=== PATIENT | female | born 1995 | race Caucasian/White ===

== ENCOUNTER 2017-11-09 14:58 | Emergency (ER) | payer OTHER ==
[2017-11-09 18:54] VITALS: BP 105/63
--- NOTE | 2017-11-09 19:12 | UC ---
FLU HPI - HPI Summary HPI Summary: 22 y/o female presents to the urgent care c/o [place], body aches chills and fatigue since 11/06/2017. Pt reports fever started yesterday associated w/ nausea , and mild dizziness. She had fever of 101.2 and has been taking Tylenol PO to alleviate symptoms. Pt denies SOB, chest pain, abdominal pain, N/V/D. - History of Current Complaint Chief Complaint: UCRespiratory Stated Complaint: NAUSEA,FATIGUEC Time Seen by Provider: 11/09/17 19:11 Hx Obtained From: Patient Hx Last Menstrual Period: 3 WEEKS AGO ?: No Onset/Duration: Gradual Onset, Lasting Days - 1 day, Still Present, Worse Since - today Severity Currently: Moderate Severity Initially: Mild Pain Intensity: 5 Pain Scale Used: 0-10 Numeric Associated Signs & Symptoms: Positive: Fever, Myalgia, Cough, Sore Throat, Nasal Congestion, Headache - Risk Factors Influenza Risk Factors: Negative - Allergy/Home Medications Allergies/Adverse Reactions: Allergies Allergy/AdvReac Type Severity Reaction Status Date / Time gluten Allergy Severe ABD Verified 11/09/17 18:54 PAIN/CRAMPS DAIRY Allergy GAS, Uncoded 11/09/17 18:54 "DOESN'T SIT RIGHT" Home Medications: Home Medications Acetaminophen [Mapap] 1,000 mg PO PRN 11/09/17 [History] Levothyroxine TAB* [Synthroid TAB*] 137 mcg PO DAILY 11/09/17 [History Confirmed 11/09/17] Vitamins* 11/09/17 [History] PMH/Surg Hx/FS Hx/Imm Hx Endocrine History: Hypothyroidism - Surgical History Surgical History: None - Family History Family History: Hypothyrodism, Migraines - Social History Occupation: Student Lives: With Family Alcohol Use: Rare Substance Use Type: Marijuana Smoking Status (MU): Never Smoked Tobacco Review of Systems Constitutional: Fever, Chills, Other - body aches Skin: Negative Eyes: Negative ENT: Sore Throat, Nasal Discharge, Sinus Congestion Respiratory: Cough Cardiovascular: Negative Gastrointestinal: Nausea Genitourinary: Negative Motor: Negative Neurovascular: Negative Musculoskeletal: Negative Neurological: Headache Psychological: Negative Is Patient Immunocompromised?: No All Other Systems Reviewed And Are Negative: Yes Physical Exam Triage Information Reviewed: Yes Vital Signs: Initial Vital Signs Temp 98.7 F 02/11/18 18:50 Pulse 92 11/09/17 18:50 Resp 16 11/09/17 18:50 BP 105/63 11/09/17 18:50 Pulse Ox 97 11/09/17 18:50 - Additional Comments VITAL SIGNS: Reviewed. GENERAL: Patient is a well developed and nourished female who is sitting comfortable in the examining table. Patient is not in any acute respiratory distress. HEAD AND FACE: No signs of trauma. No ecchymosis, hematomas or skull depressions. No sinus tenderness. edematous erythematous nasal mucosa with yellowish discharge, EYES: PERRLA, EOMI x 2, No injected conjunctiva, clear watery eyes, no nystagmus. No photophobia. EARS: Hearing grossly intact. Ear canals and tympanic membranes are within normal limits. MOUTH: Positive pharynx with erythema, no exudates,no palatal petechiae. no B/ L tonsillar enlargement Uvula in midline. NECK: Supple, trachea is midline, Positive anterior cervical lymphadenopathy, no JVD, no carotid bruit, no c-spine tenderness, neck with full ROM. No meningeal signs, no Kernig's or brudzinskis signs. CHEST: Symmetric, no tenderness at palpation LUNGS: Clear to auscultation bilaterally. No wheezing or crackles. CVS: Regular rate and rhythm, S1 and S2 present, no murmurs or gallops appreciated. ABDOMEN: Soft, non-tender. No signs of distention. No rebound no guarding, and no masses palpated. Bowel sounds are normal. EXTREMITIES: FROM in all major joints, no edema, no cyanosis or clubbing. NEURO: Alert and oriented x 3. No acute neurological deficits. Speech is normal and follows commands. SKIN: Dry and warm Flu Course/Dx - Course Course Of Treatment: 22 y/o female presents to the urgent care c/o [place], body aches chills and fatigue since 11/06/2017. Pt reports fever started yesterday associated w/ nausea, and mild dizziness. She had fever of 101.2 and has been taking Tylenol PO to alleviate symptoms. Pt denies SOB, chest pain, abdominal pain, N/V/D. Hx obtained.Pt with viral syndrome on examination. Influenza A&B ordered: result: negative. Pt Rx ibuprofen PO to alleviates symptoms. Advised on hand washing. Pt advised to rest, increase fluid intake, eat well and avoid strenuous exercise. If symptoms do not improve or worsen advised to return to the urgent care or f/u with her PCP for further evaluation and treatment. Pt understood and agreed with plan of care. - Differential Dx/Diagnosis Differential Diagnosis/HQI/PQRI: Bronchitis, Influenza, Pneumonia, Upper Respiratory Infection Provider Diagnoses: 1-Viral syndrome Discharge - Discharge Plan Condition: Stable Disposition: HOME Patient Education Materials: Viral Syndrome (ED) Forms: *School Release Referrals: [facility] [Outside] - 3 Days Additional Instructions: 1-Please take ibuprofen PO q6-8hrs prn as instructed after meals to alleviate pain and swelling. Increase fluid intake, eat well, rest and avoid strenuous exercise 2-If symptoms do not improve or worsen please return to the urgent care or f/u with your PCP for further evaluation and treatment.
== END 2017-11-09 20:00 | disposition home or self-care (01) ==
LOC: UCEAST 14:58
DX: B34.9 Viral infection, unspecified (principal); E03.9 Hypothyroidism, unspecified; F12.90 Cannabis use, unspecified, uncomplicated
CPT/HCPCS: 87502; 99211; G0463

== ENCOUNTER 2017-11-12 12:23 | Emergency (ER) | payer OTHER ==
[2017-11-12 13:47] VITALS: BP 92/58
--- NOTE | 2017-11-12 14:27 | UC ---
Respiratory Complaint HPI - HPI Summary HPI Summary: Pt presents with wheezing and dry cough. She tells me that she was seen here 3- 4 days ago for flu like symptoms and told her test was negative for the flu. But the following days she continued with body aches, fatigue, and fever - all of which are feeling better now. She, however, still has a persistent cough and feels as though she is wheezing at times. Denies fever, chills, SOB, chest pain , abdominal pain, n/v/d/c. - History of Current Complaint Chief Complaint: UCGeneralIllness Stated Complaint: cough Time Seen by Provider: 11/12/17 14:27 Hx Obtained From: Patient Hx Last Menstrual Period: 11/12/17 Severity Currently: None Pain Intensity: 1 Character: Cough: Nonproductive - Allergies/Home Medications Allergies/Adverse Reactions: Allergies Allergy/AdvReac Type Severity Reaction Status Date / Time gluten Allergy Severe ABD Verified 11/12/17 13:41 PAIN/CRAMPS DAIRY Allergy GAS, Uncoded 11/12/17 13:41 "DOESN'T SIT RIGHT" Home Medications: Home Medications Ibuprofen TAB* [Advil TAB*] 200 mg PO Q6H PRN 11/12/17 [History Confirmed ] PMH/Surg Hx/FS Hx/Imm Hx Previously Healthy: Yes Endocrine History: Hypothyroidism - Surgical History Surgical History: None - Family History Family History: Hypothyrodism, Migraines - Social History Occupation: Student Lives: Alone Alcohol Use: Rare Substance Use Type: None Smoking Status (MU): Never Smoked Tobacco Review of Systems Constitutional: Negative Skin: Negative Eyes: Negative ENT: Negative Respiratory: Cough Cardiovascular: Negative Gastrointestinal: Negative Musculoskeletal: Negative Neurological: Negative Psychological: Negative All Other Systems Reviewed And Are Negative: Yes Physical Exam Triage Information Reviewed: Yes Appearance: Well-Appearing, No Pain Distress, Well-Nourished Vital Signs: Initial Vital Signs Temp 98.6 F 11/12/17 13:42 Pulse 66 11/12/17 13:42 Resp 18 11/12/17 13:42 BP 92/58 11/12/17 13:42 Pulse Ox 98 11/12/17 13:42 Vital Signs Reviewed: Yes Eyes: Positive: Conjunctiva Clear. Negative: Conjunctiva Inflamed, Discharge ENT: Positive: Hearing grossly normal, Pharynx normal, TMs normal, Uvula midline. Negative: Pharyngeal erythema, Nasal congestion, Nasal drainage, TM bulging, TM dull, TM red, Tonsillar swelling, Tonsillar exudate, Hoarse voice, Sinus tenderness Neck: Positive: Supple, Nontender, No Lymphadenopathy Respiratory: Positive: Chest non-tender, Lungs clear, No respiratory distress, No accessory muscle use, Wheezing - Mild at lung bases. Negative: Crackles Cardiovascular: Positive: RRR, No Murmur, Pulses Normal Neurological: Positive: Alert Psychological: Positive: Age Appropriate Behavior Skin: Negative: rashes UC Diagnostic Evaluation - Laboratory O2 Sat by Pulse Oximetry: 98 Respiratory Course/Dx - Course Course Of Treatment: Suspect bronchitis - will try prednisone and albuterol inhaler. - Differential Dx/Diagnosis Provider Diagnoses: Bronchitis Discharge - Discharge Plan Condition: Stable Disposition: HOME Prescriptions: Albuterol HFA INHALER* [Ventolin HFA Inhaler*] 1 - 2 puff INH Q6H PRN #1 mdi PRN Reason: Cough predniSONE TAB* [Deltasone TAB*] 40 mg PO DAILY #10 tab Patient Education Materials: Acute Bronchitis (ED) Referrals: No Primary Care Phys,NOPCP [Primary Care Provider] - Additional Instructions: If you develop a fever, shortness of breath, chest pain, new or worsening symptoms - please call your PCP or go to the ED.
== END 2017-11-12 14:39 | disposition home or self-care (01) ==
LOC: UCEAST 12:23
DX: J40 Bronchitis, not specified as acute or chronic (principal); E03.9 Hypothyroidism, unspecified
CPT/HCPCS: 99212; G0463

== ENCOUNTER 2017-11-18 16:30 | Emergency (ER) | payer OTHER ==
[2017-11-18] MEDS ORDERED: NS 0.9% 1000 ML* 1,000 ML IV ONE ×2 (16:36→16:55)
[2017-11-18 18:45] VITALS: BP 114/64
--- NOTE | 2017-11-18 20:59 | ED ---
Helena Crespo Thomas, scribed for Miroslava Holder MD on 11/18/17 at 1735 . Respiratory - HPI Summary HPI Summary: The patient is a 22 year old female referred from [facility] complaining of shortness of breath and cough for the last two weeks. She had a nera syncopal episode. The patient had a CXR obtained at [facility] that showed left upper lobe pneumonia. She was orthostatic at 77/42 prior to arrival. The patient has been taking steroids and albuterol. Two weeks ago, the patient had flu-like symptoms. A rapid influenza swab was negative at urgent care two weeks ago. LMP was last week. - History of Current Complaint Chief Complaint: EDFluSymptoms Stated Complaint: GENERAL ILLNESS Time Seen by Provider: 11/18/17 17:27 Hx Obtained From: Patient Onset/Duration: Lasting Weeks - 2, Still Present Timing: Constant Initial Severity: Mild Current Severity: Moderate Pain Intensity: 4 Character: Cough (Nonproductive) Aggravating Factor(s): Nothing Alleviating Factor(s): Other - Steroids, albuterol Associated Signs and Symptoms: SOB, Dyspnea - Allergy/Home Medications Allergies/Adverse Reactions: Allergies Allergy/AdvReac Type Severity Reaction Status Date / Time gluten Allergy Severe ABD Verified 11/12/17 13:41 PAIN/CRAMPS DAIRY Allergy GAS, Uncoded 11/12/17 13:41 "DOESN'T SIT RIGHT" PMH/Surg Hx/FS Hx/Imm Hx Endocrine/Hematology History: Reports: Hx Thyroid Disease Respiratory History: Denies: Hx Asthma - Surgical History Surgery Procedure, Year, and Place: None Infectious Disease History: No Infectious Disease History: Denies: Traveled Outside the [place] in Last 30 Days - Family History Known Family History: Positive: Other - Migraines, hypothyroidism Family History: Hypothyrodism, Migraines - Social History Occupation: Student Alcohol Use: Rare Substance Use Type: Reports: Marijuana Smoking Status (MU): Never Smoked Tobacco Review of Systems Positive: Shortness Of Breath, Cough Positive: Syncope - near All Other Systems Reviewed And Are Negative: Yes Physical Exam - Summary Physical Exam Summary: Appearance: mildly Ill-appearing, no pain distress, Well-nourished Skin: Warm, color reflects adequate perfusion Head: Normal Head/Face inspection Eyes: Conjunctiva clear ENT: Normal inspection Neck: Supple, no nodes, no JVD. Respiratory: Lungs clear, Normal breath sounds, no respiratory distress Cardio: RRR, No murmur, pulses normal, brisk capillary refill Abdomen: soft, nontender Bowel sounds: present Musculoskeletal: Strength Intact/ ROM intact. No calf tenderness. No edema. Neuro: Alert, muscle tone normal, facial symmetry, speech normal, sensory/motor intact Psychological: Normal Triage Information Reviewed: Yes Vital Signs On Initial Exam: Initial Vitals Temp Pulse Resp BP Pulse Ox 99.7 F 96 18 98/67 97 11/18/17 16:33 11/18/17 16:33 11/18/17 16:33 11/18/17 16:33 11/18/17 16:33 Vital Signs Reviewed: Yes Diagnostics - Vital Signs Vital Signs Temp Pulse Resp BP Pulse Ox 11/18/17 16:33 99.7 F 96 18 98/67 97 - Laboratory Lab Results: Lab Results 11/18/17 Range/Units 18:20 Influenza A (Rapid) Negative (Negative) Influenza B (Rapid) Negative (Negative) Lab Statement: Any lab studies that have been ordered have been reviewed, and results considered in the medical decision making process. Disposition - Course Assessment/Plan: The patient is a 22 year old female referred from [facility] complaining of shortness of breath and cough for the last two weeks. A CXR obtained prior to arrival showed left upper lobe pneumonia. She was orthostatic at 77/42 prior to arrival. The patient was given IV fluids. Rapid Influenza A and B are negative. The patient was instructed to pickling solution maker her antibiotics prescribed by Kirsty Villatoro today. I prescribed the patient a 12- day taper of prednisone. She was given two liters of normal saline and her blood pressure returned to normal. The patient will be discharged with follow up at [facility]. - Diagnoses Provider Diagnoses: Pneumonia, Orthostatic hypotension, Near syncope Discharge - Discharge Plan Condition: Stable Disposition: HOME Prescriptions: predniSONE TAB* [Deltasone TAB*] 10 mg PO DAILY #30 tab Patient Education Materials: Hypotension (ED), Near Syncope (ED), Pneumonia (ED ) Forms: *School Release [facility] [Z.BUSINESS, APPLICATION, OTHER] - 2 Days Additional Instructions: Follow up at [facility] in two days. Please pickling solution maker your antibiotics prescribed today by Kirsty Villatoro. Take them as directed. We are prescribing you a 12-day prednisone taper. Your influenza swab was negative. You were given two liters of Normal Saline fluid and your blood pressure returned to normal. Return to the ER if you have any new or worsening symptoms. The documentation as recorded by the Helena engle Thomas accurately reflects the service I personally performed and the decisions made by me, Miroslava Holder MD.
== END 2017-11-18 18:48 | disposition home or self-care (01) ==
LOC: ED 16:30
DX: J18.9 Pneumonia, unspecified organism (principal); I95.1 Orthostatic hypotension; R55 Syncope and collapse
CPT/HCPCS: 87502; 96360; 99282